=== PATIENT | female | born 1980 | race Caucasian/White ===

== ENCOUNTER 2018-03-01 12:15 | Emergency (ER) | payer OTHER ==
[2018-03-01 13:11] LABS: ADD UMIC NO; UR ASCORBIC ACID NEGATIVE (NEGATIVE); UR BACTERIA FEW /HPF (NONE SEEN); UR BILIRUBIN (Dip) NEGATIVE (NEGATIVE); UR BLOOD (Dip) NEGATIVE (NEGATIVE); UR CLARITY SLIGHTLY CLOUDY (CLEAR); UR COLOR AMBER (YELLOW); UR GLUCOSE (Dip) NEGATIVE (NEGATIVE); UR KETONES (Dip) NEGATIVE (NEGATIVE); UR LEUKOCYTE ESTERASE (Dip) NEGATIVE Leu/ul (NEGATIVE); UR MUCUS FEW /HPF (NONE SEEN); UR NITRITE (Dip) NEGATIVE (NEGATIVE); UR RBC 1 /HPF (0-5); UR SPECIFIC GRAVITY (Dip) 1.024 (1.003-1.030); UR TOTAL PROTEIN (Dip) NEGATIVE (NEGATIVE); UR UROBILINOGEN (Dip) NEGATIVE (NEGATIVE); UR WBC 1 /HPF (0-5)
== END 2018-03-01 13:33 | disposition home or self-care (01) ==
LOC: FTE 12:15
DX: R30.0 Dysuria (principal)
CPT/HCPCS: 81001; 81003; 81025; 87591; 99283

== ENCOUNTER 2018-03-19 12:38 | Day surgery (SDC) | payer OTHER ==
[2018-03-19] MEDS ORDERED: PROPOFOL 20 ML (15:32)
[2018-03-19] MEDS ORDERED: LIDOCAINE 2% (SDV) 5 ML INJ (15:32)
[2018-03-19] MEDS ORDERED: FENTAnyl 50 MCG/ML VIAL (15:33)
[2018-03-19] MEDS ORDERED: MIDAZOLAM 1 MG/ML 2 ML INJ (15:33)
== END 2018-03-19 16:52 | disposition home or self-care (01) ==
LOC: GIL 12:38
DX: K29.50 Unspecified chronic gastritis without bleeding (principal); K44.9 Diaphragmatic hernia without obstruction or gangrene
CPT/HCPCS: 43239; 84703; 88305; 88312; 88313